=== PATIENT | female | born 1980 | race Caucasian/White ===

== ENCOUNTER 2019-05-17 09:01 | Observation (INO) ==
--- NOTE | 2019-05-17 10:07 | Emergency Department Note ---
Disposition Clinical Impression: Sinus tachycardia Disposition: Admitted As Inpatient Condition: Fair Time of Disposition: 17:22 General Adult HPI - General Chief complaint: ED Chest Pain Stated complaint: CP/HHR Time Seen by Provider: 05/17/19 09:22 Source: patient Mode of arrival: ambulatory Limitations: no limitations Nursing Notes Reviewed: Yes Vital Signs Reviewed: Yes - History of Present Illness HPI Narrative: This 39-year-old female, with a past medical history of kidney stones, and a patent foramen ovale, presents with tachycardia, and shortness of breath. She was at the emergency department last night for similar complaints, and was discharged. She has had this tachycardia and shortness of breath for over 1 week, her primary care doctor wanted her to wear a Holter monitor at home but she has yet to pick this up. Last night she was here, had a full chest pain wor kup, which was negative, she did vagal maneuvers, which converted her sinus tachycardia, but only lasted for a brief while. She then was given 10 mg of labetalol which did not work. She had to leave the hospital due to her children being at home alone. She is now back with the same complaints. The patient states that she does get some chest pain with deep inspiration, has some chest pressure at rest which feels like heaviness that goes up into her neck, has had some diaphoresis. Denies nausea, vomiting, clamminess, and feeling of doom. Patient states that she is not on estrogen therapy, or control, that she has had a total hysterectomy, denies any leg swelling, history of malignancy, history of clottiing disorders in her family or personal history of them, denies any history of ever having a DVT, or PE and denies any history of cardiac disease other than a PFO, does not have hypertension, diabetes, or hyperlipidemia. Denies a family history of [place] prior to age 50, denies any history of arrhythmias. Pain Scale: 5 - Related Data Home Medications Medication Instructions Recorded Confirmed Eszopiclone [Lunesta] 1 mg PO HS PRN 05/17/19 05/18/19 BuPROPion SR (12 HR) [Wellbutrin 150 mg PO QAM 05/18/19 05/18/19 SR] Multivitamin [Daily Multiple 1 tab PO DAILY 05/18/19 05/18/19 Vitamin] Previous Rx's Medication Instructions Recorded Metoprolol XL (24 HR) Succ [Toprol 37.5 mg PO DAILY #30 tab.er.24h 05/19/19 Xl] Allergies Allergy/AdvReac Type Severity Reaction Status Date / Time No Known Allergies Allergy Verified 05/18/19 14:18 All systems ED: reviewed and negative except as stated. Review of Systems: As Per HPI Past Medical History - Past Medical History Medical history: Reports: kidney stones, other Surgical history: Reports: hysterectomy, other Psychiatric history: Reports: no psych history - Social History Smoking Status: Never smoker Smokeless Tobacco Status: No Alcohol use: Reports: rarely Drug use: Reports: none Physical Exam General: Alert and in no acute distress Skin: Warm, dry, intact Head: Normocephalic and atraumatic Neck: Supple, trachea midline and no tenderness Cardiovascular: Tachycardia, no murmur, normal perfusion Respiratory: CTAB, no wheezing, cough, or respiratory distress Musculoskeletal: Normal strength, no tenderness, swelling or deformity GI: Soft, nontender, nondistended. Bowel sounds present Neuro: A&O to person, place, time and situation. No focal deficits noted on exam Psychiatric: cooperative and appropriate mood and affect. Course Vital Signs Temperature 98.5 F 05/17/19 09:04 Pulse Rate 132 05/17/19 09:04 Respiratory Rate 16 05/17/19 09:04 Blood Pressure 127/91 05/17/19 09:04 O2 Sat by Pulse Oximetry 97 05/17/19 09:04 Temperature 98.8 F 05/19/19 07:35 Pulse Rate 120 05/19/19 07:35 Respiratory Rate 16 05/19/19 07:35 Blood Pressure 114/82 05/19/19 07:35 O2 Sat by Pulse Oximetry 95 05/19/19 07:35 Oxygen Delivery Oxygen Delivery Room Air Medical Decision Making - [facility] Narrative Medical decision making narrative: Patient was greeted upon arrival to the emergency department, a thorough history and physical exam were performed. An EKG and chest x-ray were ordered as well as basic labs including a d-dimer. Her d-dimer today was negative. Patient was here last night for similar complaints including shortness of breath, chest pain, tachycardia. They tried vagal maneuvers, and 10 mg of labetalol without success to convert her out of sinus tachycardia. She was discharged home with return precautions. Given that the patient currently has sinus tachycardia without any clear cause, gets short of breath and diaphoretic with minimal exertion, and a negative workup in the emergency department, I feel that she should be admitted to the hospital for further workup with cardiology. She is in agreement with this plan. She will will be admitted to the hospitalist service under the care of Dr. Torres. - Medical Records Medical records reviewed: Yes I reviewed the patient's medical records. - Lab Data Lab results reviewed: Yes I reviewed the patient's lab results. Result diagrams: 05/18/19 05:45 05/18/19 05:45 Lab Results 05/17/19 05/17/19 05/17/19 Range/Units 10:06 10:06 10:06 WBC 5.8 (4.3-11.1) K/mcL RBC 4.55 (3.82-4.97) M/mcL Hgb 12.9 (11.5-15.4) g/dL Hct 40.4 (35.3-44.9) % MCV 88.8 (83.0-100.0) fL MCH 28.4 (28.0-33.3) pg MCHC 31.9 (31.6-35.5) g/dL RDW 13.0 (11.5-14.5) % Plt Count 144 (140-400) K/mcL MPV 9.5 (9.4-12.4) fL Immature Gran % 0.2 (0-4) % Seg Neutrophils % 69.2 % Lymphocytes % 17.4 % Monocytes % 10.8 % Eosinophils % 1.7 % Basophils % 0.7 % Neutrophils # 4.0 (1.6-8.9) K/mcL Lymphocytes # 1.0 (0.6-4.6) K/mcL Monocytes # 0.6 (0.0-1.3) K/mcL Eosinophils # 0.1 (0.0-0.6) K/mcL Basophils # 0.0 (0.0-0.2) K/mcL D-Dimer 448 (0-500) ng/mLFEU Sodium 141 (136-145) mEq/L Potassium 4.1 (3.5-5.1) mEq/L Chloride 105 (98-107) mEq/L Carbon Dioxide 26 (23-29) mEq/L BUN 6 (6-20) mg/dL Creatinine 0.78 (0.60-1.20) mg/dL Est GFR ( Amer) > 60 (> 60) Est GFR (Non-Af Amer) > 60 (> 60) BUN/Creatinine Ratio 8 (6-26) Glucose 97 (70-105) mg/dL Calculated Osmolality 290 (280-300) Calcium 9.1 (8.6-10.3) mg/dL Phosphorus 3.3 (2.7-4.5) mg/dL Magnesium 2.0 (1.6-2.6) mg/dL Troponin I < 0.03 (< 0.04) ng/mL - Radiology Data Chest X-Ray 05/17/19 09:41 IMPRESSION: Bibasilar atelectasis D/ / Kirill Ricketts MD / Kirill Ricketts MD Interpreting Provider: Kirill Ricketts MD - EKG Data EKG #1 EKG results narrative: EKG was interpreted by me. The rhythm is sinus rhythm, the rate is regular and tachycardic, at 133 . The axis is normal. There is no evidence of heart block. The AL interval is 158 The QRS duration is within normal limits 88 and the QTC is within normal limits and 459. There are no ST elevations or depressions and no T-wave inversions or hyper acuity. There is no evidence of pathologic Q waves. There is no evidence of WPW, Brugada, HOCM. Attestation Statement - Attestation Attestation: I, Pepe Dean, examined this patient and my medical decision-making was reviewed with the SENIOR ANDROID DEVELOPER/PA/Advanced Practice Nurse/Resident Physician. I agree with the documented findings, disposition and treatment plan as described except to the extent set forth below. 39-year-old female presents emergency Department with concerns of tachycardia. Patient was recently evaluated emergency department for similar symptoms. She left to take care of social issues however is now back because her symptoms have not improved. Patient states her heart rate has been significantly elevated and she becomes short of breath and diaphoretic with minimal exertion. Never had symptoms like this in the past. Denies recent fevers, chills, new medications. Denies EtOH use or illicit drug use. EKG does not show evidence of STEMI however does show sinus tachycardia.I reviewed the EKG with the resident and agree with the interpretation. Patient feels comfortable with the plan to be admitted to hospitalist for further care and evaluation. Initial troponin was negative. D-dimer negative.
[2019-05-17] MEDS ORDERED: Prochlorperazine 10 MG/2 ML VIAL IVP PRN (10:11)
[2019-05-17] MEDS ORDERED: Ketorolac 15 MG/ML VIAL IVP ONE (10:13)
[2019-05-17 10:27] LABS: Basophils % 0.7 %; Eosinophils # 0.1 K/mcL (0.0-0.6); Eosinophils % 1.7 %; Hematocrit 40.4 % (35.3-44.9); Hemoglobin 12.9 g/dL (11.5-15.4); Immature Granulocytes % 0.2 % (0-4); Lymphocytes % 17.4 %; Mean Corpuscular HGB Conc 31.9 g/dL (31.6-35.5); Mean Corpuscular Hemoglobin 28.4 pg (28.0-33.3); Mean Corpuscular Volume 88.8 fL (83.0-100.0); Mean Platelet Volume 9.5 fL (9.4-12.4); Monocytes # 0.6 K/mcL (0.0-1.3); Monocytes % 10.8 %; Platelet Count 144 K/mcL (140-400); Red Blood Count 4.55 M/mcL (3.82-4.97); Segmented Neutrophils % 69.2 %; White Blood Count 5.8 K/mcL (4.3-11.1)
[2019-05-17 10:55] LABS: BUN/Creatinine Ratio 8 (6-26); Blood Urea Nitrogen 6 mg/dL (6-20); Calcium 9.1 mg/dL (8.6-10.3); Carbon Dioxide 26 mEq/L (23-29); Chloride 105 mEq/L (98-107); Glucose 97 mg/dL (70-105); Osmolality,Calculated 290 (280-300); Potassium 4.1 mEq/L (3.5-5.1); Sodium 141 mEq/L (136-145); Troponin I < 0.03 ng/mL (< 0.04); eGFR For African Americans > 60 (> 60); eGFR For Non-African Americans > 60 (> 60)
[2019-05-17] MEDS ORDERED: Naloxone 0.4 MG/ML INJ IVP PRN (11:30)
[2019-05-17] MEDS ORDERED: Isovue-370 500 ML BOTTLE IVP ONE (11:32)
[2019-05-17 12:07] LABS: Phosphorous 3.3 mg/dL (2.7-4.5)
--- NOTE | 2019-05-17 12:33 | Internal Med History&Physical ---
Date of Encounter: 05/17/19 Time of Encounter: 12:27 Internal Medicine - H&P: HPI Chief complaint: Papitations. and shortness of breath Admitted From: Home Plans for Post Hospital Care: Home History of present illness: Ms. Barber is a 39 year old female PMH of insomnia, and PFO. Patient presented to the ED due to 2 weeks history of palpitations and shortness of breath. Patient reported about 2 weeks ago she started feeling this sensation that her HR has been raising. Started that at first she believed it was due to her daily life stressors, but reports that yesterday while she was at work her HR was persistently in the 130s, and she has having palpitations and shortness of breath with minimal exertion. She presented to the ED last night, got some medications and was DC home with the instructions to follow up with a forest ranger technician as outpatient. Reported after being discharged, she took the trash out in her move and her HR went up to the 120-130s and remained like this overnight. She called a forest ranger technician office to make and appointment as was recommended to come to the ED. She denies shortness of breath at rest. Denies recreational drug use or decrease caffeine intake. Denies Hx of panic attacks or anxiety attacks. Reports she was started on Wellbutrin on January due to some stressful situations in her life. Past Med Surg Social Fam HX - Past Medical History Medical history: kidney stones, other Additional medical history: Chronic inflammation of the colon. Patent foramen ovale Psychiatric history: no psych history - Past Surgical History Surgical History: hysterectomy, other Additional surgical history: tubal ligation. endometrial ablation. colonoscopy - Social History Smoking Status: Never smoker Smokeless Tobacco Status: No Alcohol use: occasionally Drug use: none Internal Medicine - H&P: Meds BuPROPion [Wellbutrin] 75 mg PO DAILY 05/17/19 [History] Eszopiclone [Lunesta] 1 mg PO QPM 05/17/19 [History] Allergy/AdvReac Type Severity Reaction Status Date / Time No Known Allergies Allergy Verified 10/29/15 10:15 All Systems PM: A 10-system review of systems was performed and is negative for pertinent findings except as documented above in the HPI. - Constitutional Constitutional: no chills, no lethargy, no weakness - EENT Eyes: no blurry vision Nose, mouth and throat: no dental pain - Cardiovascular Cardiovascular ROS IM: dyspnea on exertion, lightheadedness, palpitations, no chest pain, no irregular heart rhythm, no paroxysmal nocturnal dyspnea - Respiratory Respiratory: no cough, no wheezing, no excessive phlegm production - Gastrointestinal Gastrointestinal: no abdominal pain, no nausea, no vomiting - Genitourinary Genitourinary: no dysuria, no urinary frequency, no urinary urgency - Musculoskeletal Musculoskeletal ROS IM: no back pain - Integumentary Integumentary IM: no erythema - Neurological Neurological ROS: no frequent falls, no headache(s) - Psychiatric Psychiatric: no hopelessness, no irritability - Endocrine Endocrine IM: no cold intolerance, no excessive sweating - Hematologic/Lymphatic Hematologic/Lymphatic: no lymphadenopathy - Allergic/Immunologic Allergic/Immunologic: no GI upset with certain foods - Constitutional Vitals: Temp Pulse Resp BP Pulse Ox 98.5 F 113 16 112/86 100 05/17/19 09:40 05/17/19 12:11 05/17/19 12:11 05/17/19 12:11 05/17/19 12:11 Exam: Vitals: Reviewed General: Alert and oriented x4. In mild distress due to palpitations. Cardiovascular: Tachycardia, normal S1 & S2, no rubs, murmurs or gallops. Lungs: Clear to auscultation bilaterall, no wheezes or crackles. Abdomen: oft, non-tender, no rigidity. Extremities: No deformity, no edema or tenderness, no joint swelling or clubbing. Neurological: Normal cognition and motor skills. Rest of the physical exam is non contributory Internal Med - H&P Results - Labs CBC & Chem 7: 05/17/19 10:06 05/17/19 10:06 Labs: Short CBC 05/17/19 Range/Units 10:06 WBC 5.8 (4.3-11.1) K/mcL Hgb 12.9 (11.5-15.4) g/dL Hct 40.4 (35.3-44.9) % Plt Count 144 (140-400) K/mcL Neutrophils # 4.0 (1.6-8.9) K/mcL BMP 05/17/19 10:06 Sodium 141 Potassium 4.1 Chloride 105 Carbon Dioxide 26 BUN 6 Creatinine 0.78 Glucose 97 Calcium 9.1 Cardiac Enzymes 05/17/19 Range/Units 10:06 Troponin I < 0.03 (< 0.04) ng/mL - Impressions ITS Impressions Chest X-Ray 05/17/19 09:41 IMPRESSION: Bibasilar atelectasis D/ / Kirill Ricketts MD / Kirill Ricketts MD Interpreting Provider: Kirill Ricketts MD - Diagnostic Studies Chest x-ray Status: image reviewed by me (no acute findings) - Assessment and Plan (1) Sinus tachycardia Current Visit: No Status: Acute Assessment and plan: patient presenting with 2 weeks hx of tachycardia associated with palpitations and shortness of breath. Plan - CTA of the chest ordered - TTE to r/o any valvular abnormalities, patient with a Hx of PFO. - started on a BB - Telemetry monitoring - will consider cardiology consult pending those test results. - Hold wellbutrin for the next 24-48 hours. (2) DVT prophylaxis Current Visit: Yes Status: Chronic Assessment and plan: started on heparin subQ (3) Insomnia Current Visit: Yes Status: Chronic Assessment and plan: Will resume patient's home medication when verified by the pharmacy Qualifiers: Insomnia type: unspecified Qualified Code(s): G47.00 - Insomnia, unspecifi ed - Time Spent With Patient Total time spent is greater than 50% in coordination of care (as documented) at patient's floor/unit and/or counseling patient: Greater than 35 minutes (40)
[2019-05-17 15:31] LABS: Amphetamine Screen,Urine Negative ng/mL (Cutoff=1000); Barbiturate Screen,Urine Negative ng/mL (Cutoff=200); Benzodiazepines Screen,Urine Negative ng/mL (Cutoff=200); Cannabinoid Screen,Urine Negative ng/mL (Cutoff = 50); Cocaine Screen,Urine Negative ng/mL (Cutoff= 300); Opiate Screen,Urine Negative ng/mL (Cutoff=300); Phencyclidine Screen,Urine Negative ng/mL (Cutoff=25)
[2019-05-17] MEDS: *HR* Heparin 5,000 UNIT/ML VIAL SQ SCH ×2 (16:46→19:37)
[2019-05-17] MEDS ORDERED: Metoprolol XL (24 HR) Succ 25 MG TAB.ER.24H PO ONE (17:00)
[2019-05-18] MEDS: traMADol 50 MG TABLET PO PRN ×3 (00:31→21:14)
[2019-05-18 06:58] LABS: Basophils % 0.5 %; Eosinophils # 0.2 K/mcL (0.0-0.6); Eosinophils % 3.3 %; Hematocrit 40.3 % (35.3-44.9); Immature Granulocytes % 0.3 % (0-4); Lymphocytes # 1.6 K/mcL (0.6-4.6); Lymphocytes % 26.2 %; Mean Corpuscular HGB Conc 32.3 g/dL (31.6-35.5); Mean Corpuscular Hemoglobin 28.6 pg (28.0-33.3); Mean Corpuscular Volume 88.8 fL (83.0-100.0); Mean Platelet Volume 10.4 fL (9.4-12.4); Monocytes # 0.5 K/mcL (0.0-1.3); Monocytes % 8.6 %; Neutrophils # 3.8 K/mcL (1.6-8.9); Platelet Count 132 K/mcL (140-400); Red Blood Count 4.54 M/mcL (3.82-4.97); Red Cell Distribution Width 12.9 % (11.5-14.5); Segmented Neutrophils % 61.1 %; White Blood Count 6.2 K/mcL (4.3-11.1)
[2019-05-18 07:20] LABS: BUN/Creatinine Ratio 10 (6-26); Blood Urea Nitrogen 8 mg/dL (6-20); Calcium 9.2 mg/dL (8.6-10.3); Carbon Dioxide 26 mEq/L (23-29); Chloride 104 mEq/L (98-107); Glucose 91 mg/dL (70-105); Osmolality,Calculated 290 (280-300); Sodium 141 mEq/L (136-145); eGFR For African Americans > 60 (> 60); eGFR For Non-African Americans > 60 (> 60)
[2019-05-18 07:33] LABS: Thyroid Stimulating Hormone 0.977 mcIU/mL (0.340-5.600)
[2019-05-18 09:17] LABS: Triiodothyronine (T3) Free 3.57 pg/mL (2.50-3.90)
[2019-05-18] MEDS: *HR* Heparin 5,000 UNIT/ML VIAL SQ SCH ×3 (11:06→19:50)
[2019-05-18] MEDS ORDERED: Metoprolol XL (24 HR) Succ 25 MG TAB.ER.24H PO SCH (11:32)
--- NOTE | 2019-05-18 11:34 | Internal Med Progress Note ---
Hospitalist Progress Note - Encounter Date of Encounter: 05/18/19 Time of Encounter: 11:29 - Subjective Interval History: Ms. Barber is a 39 year old female PMH of insomnia, and PFO. Patient presented to the ED due to 2 weeks history of palpitations and shortness of breath. Patient reported about 2 weeks ago she started feeling this sensation that her HR has been raising. Started that at first she believed it was due to her daily life stressors, but reports that yesterday while she was at work her HR was persistently in the 130s, and she has having palpitations and shortness of breath with minimal exertion. Patient seen and examined in the room. She reported recently was started on Wellbutrin. She also endorsed recent loss of family member and stress. She denies prior similar symptoms. She has no chest pain, cough, lightheadedness, or syncope. She reported absence of fever, chills, or night sweats. - Exam Vitals: Temp Pulse Resp BP Pulse Ox 98.7 F 96 16 111/78 96 05/18/19 11:07 05/18/19 11:07 05/18/19 11:07 05/18/19 11:07 05/18/19 11:07 Exam: Vitals: Reviewed General: Alert and oriented x4. In mild distress due to palpitations. Cardiovascular: Tachycardia, normal S1 & S2, no rubs, murmurs or gallops. Lungs: Clear to auscultation bilaterall, no wheezes or crackles. Abdomen: oft, non-tender, no rigidity. Extremities: No deformity, no edema or tenderness, no joint swelling or clubbing. Neurological: Normal cognition and motor skills. Rest of the physical exam is non contributory - Assessment and Plan (1) Sinus tachycardia Current Visit: Yes Status: Acute Assessment and Plan: 05/17 patient presenting with 2 weeks hx of tachycardia associated with palpitations and shortness of breath. Plan - CTA of the chest ordered - TTE to r/o any valvular abnormalities, patient with a Hx of PFO. - started on a BB - Telemetry monitoring - will consider cardiology consult pending those test results. - Hold wellbutrin for the next 24-48 hours. 05/18 Serial troponin was negative, EKG showed sinus tachycardia with HR 120-130, without acute ST-T change. Telemetry tracing reviewed, no malignant arrhythmia. Patient was recently started on Wellbutrin. Normal TSH, free T3 and T4. Pending echocardiogram. (2) DVT prophylaxis Current Visit: Yes Status: Chronic Assessment and Plan: started on heparin subQ (3) Insomnia Current Visit: Yes Status: Chronic Assessment and Plan: Resume home medication. - Time Spent with Patient Total time spent is greater than 50% in coordination of care (as documented) at patient's floor/unit and/or counseling patient: Greater than 35 minutes Plan of Care Discussed with: patient Internal Medicine: Result - Labs CBC & Chem 7: 05/18/19 05:45 05/18/19 05:45 Labs: Short CBC 05/18/19 Range/Units 05:45 WBC 6.2 (4.3-11.1) K/mcL Hgb 13.0 (11.5-15.4) g/dL Hct 40.3 (35.3-44.9) % Plt Count 132 L (140-400) K/mcL Neutrophils # 3.8 (1.6-8.9) K/mcL BMP 05/17/19 05/18/19 10:06 05:45 Sodium 141 141 Potassium 4.1 4.0 Chloride 105 104 Carbon Dioxide 26 26 BUN 6 8 Creatinine 0.78 0.83 Glucose 97 91 Calcium 9.1 9.2 Cardiac Enzymes 05/17/19 Range/Units 10:06 Troponin I < 0.03 (< 0.04) ng/mL - ABG Interpretation ABG results: PT/INR, D-dimer D-Dimer 448 ng/mLFEU (0-500) 05/17/19 10:06 - Impressions Impressions Chest CTA 05/17/19 11:32 IMPRESSION: No acute pulmonary embolus. No acute abnormality in the chest. Minimal atelectasis at the lung bases. D/ / Jose Hutchinson MD / Jose Hutchinson MD Interpreting Provider: Jose Hutchinson MD Consult Discharge Plan - Plan Referrals: NONE,PCP [Primary Care Provider] - ____ (3) Insomnia Qualifiers: Insomnia type: unspecified Qualified Code(s): G47.00 - Insomnia, unspecified
--- NOTE | 2019-05-18 13:31 | Electrocardiograph Report ---
[facility] Test Date: 2019-05-17 Pat Name: Raquel Barber Department: 104 Room: 3B45 Gender: F Sas Sql Developer: Debbie : 1980 Requested By: Pepe Dean Order Number: [id number] Reading MD: Dionicio Holland Measurements Intervals [place] Rate: 133 P: 57 NV: 158 QRS: 21 QRSD: 88 T: 55 QT: 381 QTc: 459 Interpretive Statements SINUS TACHYCARDIA POSSIBLE ANTERIOR MYOCARDIAL INFARCTION, PROBABLY OLD ABNORMAL RHYTHM ECG INTERPRETATION BASED ON A DEFAULT AGE OF 40 YEARS Electronically Signed On 05-18-2019 13:30:04 EDT by Dinoicio Holland
[2019-05-18] MEDS ORDERED: Metoprolol XL (24 HR) Succ 25 MG TAB.ER.24H PO ONE (16:55)
[2019-05-19] MEDS: *HR* Heparin 5,000 UNIT/ML VIAL SQ SCH (03:03)
--- NOTE | 2019-05-19 08:54 | Discharge Summary ---
- NOTES TO OUTPATIENT PROVIDER Notes to Outpatient Provider: f/u with cardiology within 1-2 months. f/u with PCP within one week. Date of Encounter: 05/19/19 Time of Encounter: 08:51 - Discharge Diagnosis (1) Sinus tachycardia Priority: Primary Status: Acute (2) DVT prophylaxis Priority: Primary Status: Chronic (3) Insomnia Priority: Secondary Status: Chronic Qualifiers: Insomnia type: unspecified Qualified Code(s): G47.00 - Insomnia, unspecified Hospital course: Ms. Barber is a 39 year old female PMH of insomnia, and PFO. Patient presented to the ED due to 2 weeks history of palpitations and shortness of breath. Patient reported about 2 weeks ago she started feeling this sensation that her HR has been raising. Started that at first she believed it was due to her daily life stressors, but reports that yesterday while she was at work her HR was persistently in the 130s, and she has having palpitations and shortness of breath with minimal exertion. She presented to the ED last night, got some medications and was DC home with the instructions to follow up with a residential program worker as outpatient. Reported after being discharged, she took the trash out in her move and her HR went up to the 120-130s and remained like this overnight. She called a residential program worker office to make and appointment and was recommended to come to the ED. She denies shortness of breath at rest. Denies recreational drug use or decrease caffeine intake. Denies Hx of panic attacks or anxiety attacks. Reports she was started on Wellbutrin on January due to some stressful situations in her life. Further workup revealed normal TSH, free T3 and T4, negative troponin. EKG has showed normal sinus tachycardia with HR about 120-[address]-T change or other malignant arrhythmia. EKG was performed showed normal EF without obvious structural abnormalities. Pt HR was controlled with oral metoprolol and sensation of palpitation has improved. She is discharged home today, her HR has been between 100-110. She was instructed to continue tkre Wellbutrin as ordered, regular exercise, and reduce life stress. She will see PCP and cardiology as scheduled. Discharge discussed with: patient Time spent discussing smoking cessation with patient: more than 10 minutes - Time Spent with Patient Total time spent providing and/or coordinating discharge services: Time spent: Greater than 30 minutes - Discharge Medications Prescriptions: New Metoprolol XL (24 HR) Succ [Toprol Xl] 37.5 mg PO DAILY #30 tab.er.24h Continued Eszopiclone [Lunesta] 1 mg PO HS PRN PRN Reason: Insomnia BuPROPion SR (12 HR) [Wellbutrin SR] 150 mg PO QAM Multivitamin [Daily Multiple Vitamin] 1 tab PO DAILY Discontinued Aspirin [Lo-Dose Aspirin EC] 81 mg PO DAILY Home Medications: Eszopiclone [Lunesta] 1 mg PO HS PRN 05/17/19 [History] BuPROPion SR (12 HR) [Wellbutrin SR] 150 mg PO QAM 05/18/19 [History] Multivitamin [Daily Multiple Vitamin] 1 tab PO DAILY 05/18/19 [History] Metoprolol XL (24 HR) Succ [Toprol Xl] 37.5 mg PO DAILY #30 tab.er.24h 05/19/19 [Rx] Allergies/Adverse Reactions: Allergy/AdvReac Type Severity Reaction Status Date / Time No Known Allergies Allergy Verified 05/18/19 14:18 Date of admission: 05/17/19 11:30 Primary care physician: PCP NONE Anticipated date of discharge: 05/19/19 - Constitutional Vitals: Temp Pulse Resp BP Pulse Ox 98.8 F 120 16 114/82 95 05/19/19 07:35 05/19/19 07:35 05/19/19 07:35 05/19/19 07:35 05/19/19 07:35 General appearance: Present: A&O X 3 Exam: Vitals: Reviewed General: Alert and oriented x4. In mild distress due to palpitations. Cardiovascular: Tachycardia, normal S1 & S2, no rubs, murmurs or gallops. Lungs: Clear to auscultation bilaterall, no wheezes or crackles. Abdomen: oft, non-tender, no rigidity. Extremities: No deformity, no edema or tenderness, no joint swelling or clubbing. Neurological: Normal cognition and motor skills. Rest of the physical exam is non contributory - Patient Status Disposition: Home, Self-Care Condition: Fair Functional capacity at discharge: independent ambulation Overall status at discharge: patient is progressing back to baseline - Discharge Instructions Follow Up With: NONE,PCP [Primary Care Provider] - - Diet and Activity Activity: increase activity as tolerated Diet: advance to your usual diet
[2019-05-19] MEDS ORDERED: Metoprolol XL (24 HR) Succ 25 MG TAB.ER.24H PO SCH (09:00)
[2019-05-19 10:37] VITALS: BP 111/73
--- NOTE | 2019-05-19 11:51 | Event Note ---
Date of Encounter: 05/19/19 Time of Encounter: 11:30 - Cardiology Event Note Cardiology assistance requested for placement of HM upon discharge. Patient admitted with palpitations. Reports HR as >140's at home the past several days (check by pulse oximeter). Drug screen negative/denies use of caffeine. Will order for 2 week event monitor to be placed upon discharge. Will coordinate follow-up with Cardiology in 3-4 weeks to review results
== END 2019-05-19 13:47 | disposition home or self-care (01) ==
LOC: 3BNU 09:01 → EMEROOARM 09:01 → 3BNU 12:35
PROVIDERS: ADMIT Internal Medicine; ATTEND Internal Medicine